=== PATIENT | female | born 1995 | race Caucasian/White ===

== ENCOUNTER → 2024-07-21 | Outpatient (CLI) | payer MEDICAID, SELFPAY ==
--- NOTE | 2024-07-21 13:33 | VDLE_ITS ---
Reason For Study: Bilateral leg swelling RIGHT LEFT CFV is compressible, spontaneous, phasic, CFV is compressible, spontaneous, phasic, competent and demonstrates normal competent, and demonstrates normal augmentation. augmentation. FV is compressible, spontaneous, phasic, FV is compressible, spontaneous, phasic, competent and demonstrates normal competent and demonstrates normal augmentation. augmentation. POP V is compressible, spontaneous, phasic, POP V is compressible, spontaneous, phasic, competent and demonstrates normal competent and demonstrates normal augmentation. augmentation. T/P Trunk is compressible. T/P Trunk is compressible. PTV is compressible. PTV is compressible. RT PerV is compressible. LT PerV is compressible. SFJ is INCOMPETENT and measures 0.80 cm. SFJ is INCOMPETENT and measures 0.70 cm. GSV proximal thigh measures 0.40 x 0.43 cm. GSV proximal thigh measures 0.53 x 0.60 cm. GSV at knee measures 0.22 x0.23 cm. GSV at knee measures 0.43 x 0.46 cm. GSV INCOMPETENT throughout for greater than GSV INCOMPETENT throughout for greater than 0.5 seconds. 0.5 seconds. ASV proximal calf is INCOMPETENT for greater Clusters of varicose veins noted coming from than 0.5 seconds and measures 0.51 x 0.55 cm. GSV at prox thigh and knee. Varicsoe veins at knee and prox calf extend Varicose veins at knee wrap posteriorly to proximal from ASV prox calf. SSV mid. ASV at junction is INCOMPETENT for greater SSV proximal calf is competent and measures than 0.5 seconds and measures 0.55 x 0.66 cm. 0.36 x 0.35 cm. Varicose vein noted coming off of mid GSV. SSV at junction is competent and measures 0.24 x 0.27 cm. Procedure This is a venous duplex using B-mode, color flow and spectral Doppler. Exam performed in department. Patient was scanned in reverse Trendelenburg position during reflux assessment. VL/Venous Duplex US - Fernando Extrem Interpretation Summary Deep veins of the bilateral lower extremities are patent and compressible segme ntally. There is no evidence of bilateral lower extremity deep vein thrombosis. The bilateral great saphenous veins appear patent and compressible segmentally. Positive for reflux in the right saphenofemoral junction, great saphenous vein, accessory saphenous vein form junction, and accessory saphenous vein in the calf. Positive for reflux in the left saphenofemoral junction, great saphenous vein t hroughout. Ordering Physician: Rebeca Grace Referring Physician: Luis Alberto Robin Performed By: Sallie Mireles RVT
--- NOTE | 2024-07-21 13:33 | CT_ITS ---
STUDY: CTA ABDOMEN AND PELVIS WITH CONTRAST REASON FOR EXAM: Female, 29 years old. Eval for central venous compression -- Please include venous phase. Lower extremity swelling following twin . RADIATION DOSAGE (If Supplied By Facility): CTDIvol = ( 11.86 ) mGy, DLP = ( 682.35 ) mGycm TECHNIQUE: Transaxial images were obtained from the dome of the diaphragm to the symphysis pubis without oral contrast. IV 100mL Isovue-370 was administered. Sagittal and coronal images were reconstructed. Individualized dose optimization techniques were used for this CT. COMPARISON: None. FINDINGS: The visualized lung bases are unremarkable. The visualized portions of the heart are within normal limits. Normal liver. Normal gallbladder and extrahepatic biliary system. Normal spleen. Normal pancreas. Normal bilateral adrenal glands. Normal right kidney. Normal left kidney. Normal visualized stomach. Normal small intestine. Normal colon. The appendix is visualized and appears normal. Normal abdominal aorta. Normal inferior vena cava. Normal retroperitoneum. Normal urinary bladder. IUD is seen in the uterus. Follicles are seen in the left ovary. Normal abdominal wall. Normal osseous structures. CT/CTA Abd/Pelvis W/WO Contrast IMPRESSION: Normal enhanced CT of the abdomen and pelvis. Electronically Signed: Jarett Giraldo MD at 14:03 EDT ,
== END | disposition home or self-care (01) ==
PROVIDERS: PCP Family Medicine; Referring Provider Physician Assistant; Visit Provider Physician Assistant
DX: I83.813 Varicose veins of bilateral lower extremities with pain (principal)
CPT/HCPCS: 74174; 93970; Q9967

== ENCOUNTER 2024-11-09 09:27 | Day surgery (SDC) | payer MEDICAID, SELFPAY ==
[2024-11-09 10:32] LABS: Internal QC Validated? YES +Cl - CLEAR BKGD; Pregnancy, Urine Negative Negative
--- NOTE | 2024-11-09 11:05 | PCM.HP.STD ---
HPI - General HPI Narrative KEVIN FIELDS, is a 29 F who presents with right lower extremity painful varicose veins refractory to compression garments. She had a duplex that revealed reflux in the right saphenofemoral junction, great saphenous vein throughout, and accessory saphenous veins. A large cluster of the thigh varicosities originate from the accessory saphenous. PFSH Home Medications ?Medication ?Instructions ?Recorded ?Last Taken ?Type duloxetine 30 mg capsule,delayed 30 mg PO QDAY 06/24/24 Unknown History release Allergy/AdvReac Type Severity Reaction Status Date / Time No Known Allergies Allergy Verified 09/26/24 15:14 Family History Other Cancer Hypertension Myocardial infarction Surgical History Status post Social History Smoking Status: Never smoker substance use type: does not use ROS Constitutional Constitutional: Denies chills, fever(s), frequent falls, lethargy or weakness Eyes Eyes: Denies blind spots, change in vision or loss of vision ENT HEENT: Denies bleeding gums, hoarseness or sore throat Cardiovascular Cardiovascular: Denies abdominal pain, bluish discoloration of hand/feet, chest pain with activity, claudication, cold extremities, cyanosis, dyspnea on exertion, erythema on extremities, irregular heart rhythm, leg edema, leg ulcers, numbness in extremities or weakness in extremities Respiratory/Chest Respiratory/Chest: Denies cough, excessive phlegm production, shortness of breath at rest, shortness of breath with exertion or wheezing Gastrointestinal Gastrointestinal: Denies anorexia, change in stool character, constipation, diarrhea, melena or rectal bleeding Genitourinary Genitourinary: Denies dysuria or hematuria Musculoskeletal Musculoskeletal: Denies abnormal gait Integumentary Integumentary: Reports other Details: ; Denies erythema, non-healing lesions or wounds Neurologic Neurologic: Denies abnormal speech, focal weakness, headache(s), loss of vision, numbness, paresthesias or sensory deficit Hematologic/Lymphatic Hematologic/Lymphatic: Denies easy bleeding, easy bruising or lymphadenopathy Vital Signs Vital Signs Vital Signs: Weight Weight: 123 lb 12.8 oz Physical Exam Const alert, oriented x3, no apparent distress and healthy appearing General Appearance: cooperative; Negative for combative or lethargic Orientation / Consciousness: awake Exam Limitations: no limitations HEENT Head and Scalp: normocephalic and atraumatic Eyes EOMs intact bilaterally General Eye: normal appearance of both eyes Neck full ROM and no lymphadenopathy General: Negative for lymphadenopathy Resp normal respiratory effort and no use of accessory muscles Effort and Inspection: Negative for labored, stridor or audible wheezes Cardio regular rate and regular rhythm Back/Spine Cervical Spine: cervical ROM normal Extremity full ROM, normal capillary refill and no clubbing, cyanosis or edema Skin no rashes or lesions noted and no wounds Neuro oriented x3, CN's II-XII intact bilaterally, no focal motor deficits and no sensory deficits noted Psych thought process normal, cooperative, affect normal, speech normal and activity/motor behavior normal Results Lab / Micro Data Labs: Laboratory Results - last 24 hr 11/09/24 09:31: Urine Test Negative Assessment & Plan Assessment/Plan (1) Varicose veins of bilateral lower extremities with pain: PLAN: -right saphenofemoral junction ligation, GSV chemical ligation
--- NOTE | 2024-11-09 17:42 | OP.PCM_ITS ---
Operative Report (Standard) Operative Information Date of Procedure: 11/09/24 Pre-Operative Diagnosis: Varicose veins of the right lower extremity with pain Post-Operative Diagnosis: Same Surgery/Procedure Performed: Ligation of the right saphenofemoral junction Chemical ablation right great saphenous vein party supply specialist: No Type of Anesthesia: Local and Sedation,Conscious Procedure Start Time: 11:30 Procedure Stop Time: 12:00 Select all DRAINS/GRAFTS/IMPLANTS that apply: None Estimated Blood Loss: 3 Specimen collected: No Description of surgery: HPI: Patient is a 29-year-old female with bilateral lower extremity painful varicose veins which are refractory to compression. She has been found to have significant reflux in bilateral great saphenous veins including saphenofemoral junction. She has more severe symptoms on the right so she presents for right great saphenous chemical ablation. Given the incompetence of the saphenofemoral junction and presence of large accessory saphenous originating from this junction a ligation of the saphenofemoral junction is planned. Description of procedure: Upon obtaining form consent and verification correct patient procedure site the patient was taken to the Finance [facility] where she was positioned prepped and draped in usual sterile fashion. Timeouts performed and conscious sedation administered with Versed and fentanyl. Ultrasound was used to evaluate the great saphenous vein along the entirety of its length and was found to be of adequate caliber and continuous from the proximal calf to the saphenofemoral junction. In the proximal calf large varicosities joining the great saphenous vein and inferior to this the great saphenous vein was diminutive in size. Of note these varicosities rejoined with the great saphenous vein further inferior in the calf. Also location of the saphen ofemoral junction was marked and the skin was anesthetized with 1% lidocaine. Oblique incision was made and Bovie electrocautery was dissect down through subcutaneous tissue and then self-retaining retractors put in position. Once the saphenous vein was visualized sharp dissection was dissected proximally up to the saphenofemoral junction sidebranches were identified, ligated with silk ties and divided. The accessory saphenous vein that joined the great saphenous at the saphenofemoral junction likewise was ligated and divided. Next under ultrasound guidance the right great saphenous vein was accessed in the proximal calf with a micropuncture needle wire. This was then exchanged for 7 [place] ablation sheath which was advanced without resistance. The glue delivery guide was then advanced through the sheath under ultrasound guidance and positioned just inferior to the planned saphenofemoral ligation position. The great saphenous vein was then ligated at the groin incision distally with a silk tie. Proximally it was clamped and divided and then oversewn with 5-0 Prolene in 2 layers. The clamp was then released and satisfactory stasis was noted at the confluence to the common femoral vein. Next the glue delivery catheter was advanced through the guide and positioned at the ligation site. The glue was then deposited per gastroenterology nurse's instructions along the entirety of the length of the great saphenous vein. After the treatment length was completed the guide and catheter withdrawn after which the sheath was withdrawn and manual pressure at the puncture site for 5 minutes until hemostasis was obtained. Incision at the saphenofemoral junction was then closed with 3-0 Vicryl followed by 4 Monocryl and Dermabond for the skin. The patient was then taken recovery area with plan discharged to home. Surgical Findings: See above Complications Complications: No
== END 2024-11-09 14:00 | disposition home or self-care (01) ==
PROVIDERS: PCP Family Medicine; Referring Provider Surgery Trauma Surgery; Visit Provider Surgery Trauma Surgery
DX: I83.813 Varicose veins of bilateral lower extremities with pain (principal)
CPT/HCPCS: 36482; 37700; 81025; 99152; 99153; C1894

== ENCOUNTER → 2024-11-14 | Outpatient (CLI) | payer MEDICAID, SELFPAY ==
--- NOTE | 2024-11-14 08:13 | VDLE_ITS ---
Reason For Study: S/P Chemical Ablation of Rt GSV RIGHT LEFT GSV from prox calf to SFJ appears dilated and FV is compressible, spontaneous, phasic, NONCOMPRESSIBLE with bright intraluminal competent and demonstrates normal echoes. Finding is consistent with recent augmentation. chemical ablation procedure. GSV ankle to prox calf is compressible. CFV is compressible, spontaneous, phasic, competent and demonstrates normal augmentation. FV is compressible, spontaneous, phasic, competent and demonstrates normal augmentation. POP V is compressible, spontaneous, phasic, competent and demonstrates normal augmentation. T/P Trunk is compressible. PTV is compressible. RT PerV is compressible. Procedure This is a venous duplex using B-mode, color flow and spectral Doppler. Exam performed in department. The exam was diagnostic. VL/Venous Duplex US, Unilateral Interpretation Summary Deep veins of the right lower extremity are patent and compressible segmentally . There is no evidence of right lower extremity deep vein thrombosis. Right great saphenous vein occluded consistent with recent chemical ablation. Ordering Physician: Rebeca Grace Referring Physician: Luis Alberto Robin Performed By: Rc Cotton RVT and Student
== END | disposition home or self-care (01) ==
LOC: CVS 08:11
PROVIDERS: PCP Family Medicine; Referring Provider Surgery Trauma Surgery; Visit Provider Surgery Trauma Surgery
DX: Z48.812 Encounter for surgical aftercare following surgery on the circulatory system (principal); I83.813 Varicose veins of bilateral lower extremities with pain
CPT/HCPCS: 93971

== ENCOUNTER 2024-12-15 07:29 | Day surgery (SDC) | payer MEDICAID, SELFPAY ==
[2024-12-14 07:00] VITALS: BMI 19.3
[2024-12-15 07:44] LABS: Internal QC Validated? YES +Cl - CLEAR BKGD; Pregnancy, Urine Negative Negative
--- NOTE | 2024-12-15 11:46 | OP.PCM_ITS ---
Operative Report (Standard) Operative Information Date of Procedure: 12/15/24 Pre-Operative Diagnosis: varicose veins of left lower extremity with pain Post-Operative Diagnosis: same Surgery/Procedure Performed: ligation left saphenofemoral junction chemical ablation left great saphenous vein electrician underground: No Type of Anesthesia: Local and Sedation,Conscious Procedure Start Time: 09:05 Procedure Stop Time: 10:30 Select all DRAINS/GRAFTS/IMPLANTS that apply: None Estimated Blood Loss: 3 Specimen collected: No Description of surgery: HPI: Patient is a 29-year-old female with symptomatic varicose veins of the left lower extremity that are painful and refractory to compression therapy. She has reflux in the saphenofemoral junction and throughout the great saphenous vein. She presents now for left saphenofemoral junction ligation and chemical ablation of the great saphenous vein. Description of procedure: Upon obtaining form consent and verification correct patient procedure site the patient was taken the caliber she was positioned prepped and draped in usual sterile fashion. Time was performed to count sedation ministered Versed and fentanyl. Ultrasound used to evaluate the great saphenous vein throughout its length and was found to be of adequate caliber for access in the mid calf and was continuous with no significant tortuosity to the saphenofemoral junction. Skin overlying the saphenofemoral junction was then anesthetized 1% lidocaine and an oblique incision made with an 11 blade. Bovie electrocautery was then used to dissect down through subcutaneous tissue and self-retaining retractor put in position. Further dissection was carried down until the batres of the saphenofemoral junction was encountered. At this point sharp dissection was dissected free up to the junction with sidebranches ligated with silk ties and divided. Once the junction was circumferentially dissected free we then turned our attention to the saphenous vein access. Skin overlying the great saphenous vein in the mid calf was anesthetized 1% lidocaine the vessel accessed and ultrasound guidance with a micropuncture needle wire. This was exchanged for the 7 [place] ablation sheath which was advanced without resistance. Next the glue delivery guide was advanced through the sheath under ultrasound guidance up to the saphenofemoral junction. Once this was in position we then clamped the saphenofemoral junction and ligated the vessel distally just above the guide. The vessel was then divided and the proximal end oversewn with 5-0 Prolene in 2 layers. After the suture line was completed the clamps were removed and satisfactory stasis was noted. Next the glue delivery catheter was advanced through the guide and positioned at the ligated proximal saphenous vein. We then delivered glue throughout the length of the great s aphenous vein per manufactures instructions. Once the treatment length was completed the guide and catheter withdrawn followed by sheath removal and manual pressure until hemostasis was obtained. We then inspected the incision over the saphenofemoral junction and was found to be with satisfactory hemostasis. The incision were then closed with 3-0 Vicryl, 4-0 Vicryl, 4 Monocryl and Dermabond for the skin. Dry sterile dressings and Nii wrap were then applied the patient was taken to the cover area with plan discharged to home. Surgical Findings: See above Complications Complications: No
== END 2024-12-15 11:55 | disposition home or self-care (01) ==
PROVIDERS: PCP Family Medicine; Referring Provider Surgery Trauma Surgery; Visit Provider Surgery Trauma Surgery
DX: I83.813 Varicose veins of bilateral lower extremities with pain (principal); Z79.899 Other long term (current) drug therapy
CPT/HCPCS: 36482; 37700; 81025; 99152; 99153; C1894

== ENCOUNTER → 2024-12-21 | Outpatient (CLI) | payer MEDICAID, SELFPAY ==
--- NOTE | 2024-12-21 10:08 | VDLE_ITS ---
Reason For Study Reason For Study: Left leg pain RIGHT LEFT CFV is compressible, spontaneous, phasic, competent CFV is compressible, spontaneous, phasic, competent, and demonstrates normal augmentation. and demonstrates normal augmentation. Procedure FV is compressible, spontaneous, phasic, competent This is a venous duplex using B-mode, color flow and and demonstrates normal augmentation. spectral Doppler. POP V is compressible, spontaneous, phasic, competent Exam performed in department. and demonstrates normal augmentation. s/p SFJ ligation ad GSV ablation 12/15/2024. T/P Trunk is compressible. PTV is compressible. LT PerV is compressible. SFJ is occluded s/p ligation. GSV prox thigh-knee is occluded s/p chemical ablation. GSV below knee is compressible. VL/Venous Duplex US, Unilateral Interpretation Summary Deep veins of the left lower extremity are patent and compressible segmentally. There is no evidence of left lower extremity deep vein thrombosis. Left great saphenous vein occluded consistent with recent chemical ablation Ordering Physician: Rebeca Grace Referring Physician: Luis Alberto Robin Performed By: Sallie Mireles RVT
== END | disposition home or self-care (01) ==
LOC: CVS 10:05
PROVIDERS: PCP Family Medicine; Referring Provider Surgery Trauma Surgery; Visit Provider Surgery Trauma Surgery
DX: Z48.812 Encounter for surgical aftercare following surgery on the circulatory system (principal); I83.813 Varicose veins of bilateral lower extremities with pain
CPT/HCPCS: 93971